=== PATIENT | female | born 1930 | race Caucasian/White ===

== ENCOUNTER 2016-10-25 12:44 | Outpatient (CLI) | payer MEDICARE | END 2016-10-25 12:45 | disposition home or self-care (01) | DX: I50.9 Heart failure, unspecified (principal) ==

== ENCOUNTER 2016-10-30 10:12 | Outpatient (CLI) | payer MEDICARE | END 2016-10-30 10:13 | disposition home or self-care (01) | DX: I08.3 Combined rheumatic disorders of mitral, aortic and tricuspid valves (principal); I48.91 Unspecified atrial fibrillation; R60.0 Localized edema; I51.7 Cardiomegaly ==

== ENCOUNTER 2016-11-07 14:53 | Outpatient (CLI) | payer MEDICARE | END 2016-11-07 14:54 | disposition home or self-care (01) | DX: I48.91 Unspecified atrial fibrillation (principal); Z79.01 Long term (current) use of anticoagulants ==

== ENCOUNTER 2016-11-20 12:52 | Outpatient (CLI) | payer MEDICARE | END 2016-11-20 12:53 | disposition home or self-care (01) | DX: I10 Essential (primary) hypertension (principal) ==

== ENCOUNTER 2016-12-12 14:09 | Outpatient (CLI) | payer MEDICARE | END 2016-12-12 14:10 | disposition home or self-care (01) | DX: I48.91 Unspecified atrial fibrillation (principal); Z79.01 Long term (current) use of anticoagulants ==

== ENCOUNTER 2016-12-20 15:39 | Outpatient (CLI) | payer MEDICARE | END 2016-12-20 15:40 | disposition home or self-care (01) | DX: I50.9 Heart failure, unspecified (principal) ==

== ENCOUNTER 2016-12-28 11:06 | Outpatient (CLI) | payer MEDICARE | END 2016-12-28 11:07 | disposition home or self-care (01) | DX: I50.9 Heart failure, unspecified (principal) ==

== ENCOUNTER 2017-01-17 11:30 | Outpatient (CLI) | payer MEDICARE | END 2017-01-17 11:31 | disposition home or self-care (01) | DX: I50.9 Heart failure, unspecified (principal); I08.3 Combined rheumatic disorders of mitral, aortic and tricuspid valves ==

== ENCOUNTER 2017-01-23 14:17 | Outpatient (CLI) | payer MEDICARE | END 2017-01-23 14:18 | disposition home or self-care (01) | DX: I48.91 Unspecified atrial fibrillation (principal); Z79.01 Long term (current) use of anticoagulants; R06.09 Other forms of dyspnea; Z51.81 Encounter for therapeutic drug level monitoring; Z79.899 Other long term (current) drug therapy ==

== ENCOUNTER 2017-02-12 11:21 | Outpatient (CLI) | payer MEDICARE | END 2017-02-12 11:22 | disposition home or self-care (01) | DX: N18.3 Chronic kidney disease, stage 3 (moderate) (principal); I48.91 Unspecified atrial fibrillation ==

== ENCOUNTER 2017-02-28 14:48 | Outpatient (CLI) | payer MEDICARE | END 2017-02-28 14:49 | disposition home or self-care (01) | DX: I48.91 Unspecified atrial fibrillation (principal); Z79.01 Long term (current) use of anticoagulants ==

== ENCOUNTER 2017-04-10 14:23 | Outpatient (CLI) | payer MEDICARE | END 2017-04-10 14:24 | disposition home or self-care (01) | LOC: LAB.F 14:23 | PROVIDERS: ATTEND Registered Nurse | DX: I48.91 Unspecified atrial fibrillation (principal) | CPT/HCPCS: 85610 ==

== ENCOUNTER 2017-04-28 11:28 | Emergency (ER) | payer MEDICARE ==
--- NOTE | 2017-04-28 12:25 | XRAY Preliminary Report ---
Exam: XR Chest 2 View PA/LAT IMPRESSION: New small bilateral pleural effusions. [facility] SITE ID: [id number]
--- NOTE | 2017-04-28 12:27 | XRAY Report ---
EXAM: CHEST RADIOGRAPHY EXAM DATE: 04/28/2017 11:50 AM. CLINICAL HISTORY: Cough, SOA. COMPARISON: 02/06/2016. TECHNIQUE: 2 views. FINDINGS: Lungs/Pleura: No pneumothorax. Stable parenchymal opacities. New small bilateral pleural effusions. Mediastinum: Heart and mediastinal contours are stable. Other: None. IMPRESSION: New small bilateral pleural effusions. [facility] Referring Provider Line: [phone] SITE ID: [id number]
--- NOTE | 2017-04-28 14:07 | ED Physician Documentation ---
PD HPI DYSPNEA - Stated complaint Stated Complaint: SOA/DIZZY - Chief complaint Chief Complaint: Resp - History obtained from History obtained from: Patient, Family - History of Present Illness Timing - onset: Other (87-year-old woman with history of atrial fibrillation on warfarin, also recent echocardiogram showing good EF but severe tricuspid regurgitation presents with shortness of breath with a dry cough and gurgling in her chest last night. She has chronic right pedal edema which is unchanged. There was no associated chest pain. She does take Lasix and potassium including and in addition to the listed medications. The Lasix is 40 mg per day.) Review of Systems Ten Systems: 10 systems reviewed and negative Constitutional: denies: Fever, Chills, Fatigue Nose: denies: Rhinorrhea / runny nose, Congestion Cardiac: reports: Pedal edema. denies: Chest pain / pressure, Palpitations, Calf pain Respiratory: reports: Dyspnea, Cough. denies: Hemoptysis, Wheezing GI: reports: Other (Small amount of bright red blood per rectum this morning which is not uncommon, no melena.). denies: Abdominal Pain, Nausea PD PAST MEDICAL HISTORY - Past Medical History Cardiovascular: Hypertension, Atrial fibrillation Respiratory: None, Pneumonia Endocrine/Autoimmune: HyPOthyroidism GI: C.difficile, Other : Incontinence, Nocturia, Frequency HEENT: Chronic vision loss, Glaucoma, Macular degeneration, Chronic hearing loss Psych: None Musculoskeletal: Osteoarthritis, Chronic back pain Derm: None - Past Surgical History Past Surgical History: No Ortho: Carpal Tunnel surgery HEENT: Cataracts, Other - Present Medications Home Medications: Ambulatory Orders Medication Instructions Recorded Confirmed Carvedilol 1.5 tab PO BID 04/23/15 04/28/17 Levothyroxine Sodium [Tirosint] 75 mcg PO DAILY 04/23/15 04/28/17 Lisinopril 40 mg PO DAILY 04/23/15 04/28/17 Warfarin [Coumadin] 2.5 - 5 mg PO DAILY 04/23/15 04/28/17 [id number] CD [Cardizem Cd] 240 mg PO DAILY 04/23/15 04/28/17 hydrALAZINE [Apresoline] 25 mg PO DAILY 04/28/17 04/28/17 - Allergies Allergies/Adverse Reactions: Allergies Allergy/AdvReac Type Severity Reaction Status Date / Time epinephrine AdvReac Unknown Verified 04/23/15 23:53 - Social History Does the pt smoke?: No Smoking Status: Former smoker Does the pt drink ETOH?: No Does the pt have substance abuse?: No - Immunizations Immunizations: TDAP >10years/unknown - POLST Patient has POLST: No PD ED PE NORMAL - Vitals Vital signs reviewed: Yes - General General: Alert and oriented X 3, No acute distress - HEENT HEENT: PERRL, EOMI - Neck Neck: Supple, no meningeal sign, No bony TTP - Cardiac Cardiac: Other (irregular with SM 2/6 RUSB) - Respiratory Respiratory: No respiratory distress, Clear bilaterally - Abdomen Abdomen: Soft, Non tender - Derm Derm: Normal color, Warm and dry - Extremities Extremities: Other (R pitting pedal edema) - Neuro Neuro: Alert and oriented X 3, Normal speech - Psych Psych: Normal mood, Normal affect Results - Vitals Vitals: Vital Signs - 24 hr 04/28/17 11:31 Temperature 36.2 C L Heart Rate 64 Respiratory 18 Rate Blood Pressure 178/91 H O2 Saturation 98 Oxygen O2 Source Room air - EKG (time done) 1443 Rate: Rate (enter#) (69) Rhythm: Atrial fibrillation QRS: LVH Ischemia: ST elevation c/w repol, Q waves (anterior) Computer interpretation: Agree with computer - Labs Labs: Laboratory Tests 04/28/17 04/28/17 04/28/17 14:14 14:14 14:14 WBC 5.0 RBC 4.32 Hgb 12.7 Hct 38.1 MCV 88.1 MCH 29.3 MCHC 33.2 RDW 16.3 H Plt Count 158 MPV 8.0 Neut # 3.8 Lymph # 0.7 L [place] # 0.3 Eos # 0.0 Baso # 0.1 Absolute Nucleated RBC 0.00 Nucleated RBCs 0.1 PT 26.5 H INR 2.3 H Sodium 142 Potassium 3.7 Chloride 108 Carbon Dioxide 26 Anion Gap 8.0 BUN 20 Creatinine 0.9 Estimated GFR (MDRD) 59 L Glucose 101 H Calcium 10.1 Total Bilirubin 1.2 H AST 35 ALT 30 Alkaline Phosphatase 86 Troponin I Total Protein 7.1 Albumin 4.3 Globulin 2.8 Albumin/Globulin Ratio 1.5 Lipase 37 04/28/17 14:14 WBC RBC Hgb Hct MCV MCH MCHC RDW Plt Count MPV Neut # Lymph # [place] # Eos # Baso # Absolute Nucleated RBC Nucleated RBCs PT INR Sodium Potassium Chloride Carbon Dioxide Anion Gap BUN Creatinine Estimated GFR (MDRD) Glucose Calcium Total Bilirubin AST ALT Alkaline Phosphatase Troponin I 0.08 Total Protein Albumin Globulin Albumin/Globulin Ratio Lipase - Rads (name of study) 2v chest Radiology: EMP read contemporaneously (Small bilateral pleural effusions) PD MEDICAL DECISION MAKING - ED course ED course: 87-year-old woman with chronic atrial fibrillation and known CHF due to valvular issue presents with resolved shortness of breath last night. There is no evidence of ongoing coronary ischemia, PE is unlikely given her anticoagulated status. She does have a dry cough so may be getting a chest cold. She may have a subtle increase in her CHF. She is seeing her vp of customer experience strategy this week. Departure - Departure Disposition: Home, Self Care Clinical Impression: Dyspnea Qualifiers: Dyspnea type: dyspnea on exertion Qualified Code(s): R06.09 - Other forms of dyspnea Congestive heart failure Qualifiers: Congestive heart failure type: diastolic Congestive heart failure chronicity: acute on chronic Qualified Code(s): I50.33 - Acute on chronic diastolic ( congestive) heart failure Condition: Good Record reviewed to determine appropriate education?: Yes Instructions: ED CHF Right Side Comments: Take an extra dose of your Lasix tonight. Follow up with the vp of customer experience strategy this week. Return if worse in any way. Your blood pressure was elevated today on check into the emergency department. This does not mean that you have hypertension, it is a common phenomenon to come to the emergency department and have elevated blood pressure. I recommend that she see her primary care physician within the week to have it rechecked when you are feeling better.
[2017-04-28 14:22] LABS: BASOPHILS # (AUTO) 0.1 10^3/uL (0.0-0.1); BASOPHILS % (AUTO) 2.5 %; EOSINOPHILS % (AUTO) 0.8 %; HCT - HEMATOCRIT 38.1 % (37.0-47.0); HGB - HEMOGLOBIN 12.7 g/dL (12.0-16.0); LYMPHOCYTES # (AUTO) 0.7 10^3/uL (1.5-3.5); LYMPHOCYTES % (AUTO) 13.8 %; MEAN CORPUSCULAR HEMOGLOBIN 29.3 pg (27.0-31.0); MEAN CORPUSCULAR HGB CONC 33.2 g/dL (32.0-36.0); MEAN CORPUSCULAR VOLUME 88.1 fL (81.0-99.0); MONOCYTES # (AUTO) 0.3 10^3/uL (0.0-1.0); MONOCYTES % (AUTO) 6.8 %; NEUTROPHILS # (AUTO) 3.8 10^3/uL (1.5-6.6); NEUTROPHILS % (AUTO) 76.1 %; NUCLEATED RED BLOOD CELLS AUTO 0.1 /100WBC; RED BLOOD COUNT 4.32 10^6/uL (4.20-5.40); RED CELL DISTRIBUTION WIDTH 16.3 % (12.0-15.0)
[2017-04-28 14:35] LABS: ALBUMIN/GLOBULIN RATIO 1.5 (1.0-2.2); BILIRUBIN,TOTAL 1.2 mg/dL (0.2-1.0); CALCIUM 10.1 mg/dL (8.5-10.3); CREATININE 0.9 mg/dL (0.4-1.0); POTASSIUM 3.7 mmol/L (3.5-5.0); TOTAL PROTEIN 7.1 g/dL (6.7-8.2)
[2017-04-28 14:53] LABS: INR 2.3 (0.8-1.2); PT - PROTHROMBIN TIME 26.5 secs (9.9-12.6)
[2017-04-28 15:16] VITALS: BP 146/92
== END 2017-04-28 15:14 | disposition home or self-care (01) ==
LOC: ED 11:28
DX: I50.33 Acute on chronic diastolic (congestive) heart failure (principal); I11.0 Hypertensive heart disease with heart failure; I48.2 Chronic atrial fibrillation; Z79.01 Long term (current) use of anticoagulants; E03.9 Hypothyroidism, unspecified; Z87.891 Personal history of nicotine dependence
CPT/HCPCS: 36415; 71020; 80053; 83690; 84484; 85025; 85610; 93005; 99282; 99285

== ENCOUNTER 2017-05-10 14:53 | Outpatient (CLI) | payer MEDICARE | END 2017-05-10 14:54 | disposition home or self-care (01) | LOC: LAB.F 14:53 | PROVIDERS: ATTEND Registered Nurse | DX: I48.91 Unspecified atrial fibrillation (principal) | CPT/HCPCS: 85610 ==

== ENCOUNTER 2017-06-13 12:38 | Outpatient (CLI) | payer MEDICARE | END 2017-06-13 12:39 | disposition home or self-care (01) | LOC: LAB.F 12:38 | PROVIDERS: ATTEND Registered Nurse | DX: I48.91 Unspecified atrial fibrillation (principal) | CPT/HCPCS: 85610 ==

== ENCOUNTER 2017-06-20 12:53 | Outpatient (CLI) | payer MEDICARE | END 2017-06-20 12:54 | disposition home or self-care (01) | LOC: DI 12:53 | PROVIDERS: ATTEND Internal Medicine Cardiovascular Disease | DX: I35.1 Nonrheumatic aortic (valve) insufficiency (principal); I34.0 Nonrheumatic mitral (valve) insufficiency; I07.1 Rheumatic tricuspid insufficiency | CPT/HCPCS: 93306 ==

== ENCOUNTER 2017-06-26 14:32 | Outpatient (CLI) | payer MEDICARE | END 2017-06-26 14:33 | disposition home or self-care (01) | LOC: LAB.F 14:32 | PROVIDERS: ATTEND Registered Nurse | DX: I48.91 Unspecified atrial fibrillation (principal); Z79.01 Long term (current) use of anticoagulants | CPT/HCPCS: 85610 ==

== ENCOUNTER 2017-07-19 09:25 | Outpatient (CLI) | payer MEDICARE | END 2017-07-19 09:26 | disposition home or self-care (01) | LOC: LAB.F 09:25 | PROVIDERS: ATTEND Registered Nurse | DX: I48.91 Unspecified atrial fibrillation (principal); Z79.01 Long term (current) use of anticoagulants | CPT/HCPCS: 85610 ==

== ENCOUNTER 2017-07-26 09:46 | Outpatient (CLI) | payer MEDICARE | END 2017-07-26 09:47 | disposition home or self-care (01) | LOC: LAB.F 09:46 | PROVIDERS: ATTEND Registered Nurse | DX: I48.91 Unspecified atrial fibrillation (principal); Z79.01 Long term (current) use of anticoagulants | CPT/HCPCS: 85610 ==

== ENCOUNTER 2017-08-29 11:22 | Outpatient (CLI) | payer MEDICARE | END 2017-08-29 11:23 | disposition home or self-care (01) | LOC: LAB 11:22 | PROVIDERS: ATTEND Registered Nurse | DX: I48.91 Unspecified atrial fibrillation (principal); Z79.01 Long term (current) use of anticoagulants | CPT/HCPCS: 85610 ==

== ENCOUNTER 2017-10-04 12:34 | Outpatient (CLI) | payer MEDICARE | END 2017-10-04 12:35 | disposition home or self-care (01) | LOC: LAB.F 12:34 | PROVIDERS: ATTEND Registered Nurse | DX: I48.91 Unspecified atrial fibrillation (principal); Z79.01 Long term (current) use of anticoagulants | CPT/HCPCS: 85610 ==

== ENCOUNTER 2017-11-06 13:26 | Outpatient (CLI) | payer MEDICARE | END 2017-11-06 13:27 | disposition home or self-care (01) | LOC: LAB.F 13:26 | PROVIDERS: ATTEND Registered Nurse | DX: I48.91 Unspecified atrial fibrillation (principal); Z79.01 Long term (current) use of anticoagulants | CPT/HCPCS: 85610 ==

== ENCOUNTER 2018-01-03 08:00 | Outpatient (CLI) | payer MEDICARE | END 2018-01-03 08:01 | disposition home or self-care (01) | LOC: LAB.F 08:00 | PROVIDERS: ATTEND Registered Nurse | DX: I48.91 Unspecified atrial fibrillation (principal); Z79.01 Long term (current) use of anticoagulants | CPT/HCPCS: 85610 ==